=== PATIENT | female | born 1990 | race Asian ===

== ENCOUNTER 2017-12-23 14:54 | Outpatient (RCR) | payer OTHER ==
[~2017-12-23 14:54] MED LIST: FOLI-68 PO
--- NOTE | 2018-01-11 10:31 | RADIOLOGY IMAGING REPORT ---
FACILITY: [facility] PATIENT NAME: Austin Bui : 1990 MR: [id number] V: [id number] EXAM DATE: ORDERING PHYSICIAN: TWAN PIMENTEL TECHNOLOGIST: Location: [facility] - [place] Patient: Austin Bui : 1990 Visit/Account:[id number] Date of Sevice: 01/11/2018 Exam type: BIOPHYSICAL W/O NST, umbilical artery Dopplers History: 27-year-old female, 34 weeks 2 days by LMP with IUGR Comparison: 01/04/2018. Findings: There is a single live intrauterine gestation currently in vertex presentation. Normal heart rate of 134 bpm was documented. ERENDIRA is 11.8 cm with the largest amniotic fluid pocket measuring 3.9 cm. Biophysical profile score is 8 out of a possible 8 points. 2 points was ordered for breathing movement, 2 points for gross body movement, 2 points for tone and 2 points for qualitative amni otic fluid volume. Umbilical artery Doppler measurements were performed. Resistive index range from 0.52-0.65 which is normal. Systolic to diastolic ratios range from 2.1-2.9 also normal. IMPRESSION: 1. Single live intrauterine gestation currently in vertex presentation. 2. ERENDIRA is 11.8 cm with the largest amniotic fluid pocket measuring 3.9 cm. 3. Biophysical post pial score is 8/8. 4. Umbilical artery Doppler measurements are within normal range. Report Dictated By: Beni Cordero MD at 01/11/2018 10:10 AM Report E-Signed By: Beni Cordero MD at 01/11/2018 10:27 AM WSN:[email or web address]
--- NOTE | 2018-01-12 10:05 | RADIOLOGY IMAGING REPORT ---
FACILITY: [facility] - [place] PATIENT NAME: Austin Bui : 1990 MR: [id number] V: [id number] EXAM DATE: ORDERING PHYSICIAN: TWAN PIMENTEL TECHNOLOGIST: Location: [facility] - [place] Patient: Austin Bui : 1990 Visit/Account:[id number] Date of Sevice: 01/04/2018 Exam type: BIOPHYSICAL W/O NST History: Asymmetric IUGR Comparison: December 28, 2017. Findings: Biophysical profile score is eight out of eight. ERENDIRA measured 11.56 cm Gestational age by last menstrual period 33 weeks and two days IMPRESSION: 1. Biophysical profile score is eight out of eight Report Dictated By: Jess Morataya MD at 01/04/2018 2:59 PM Report E-Signed By: Jess Morataya MD at 01/04/2018 3:04 PM WSN:MAU
--- NOTE | 2018-01-12 10:09 | RADIOLOGY IMAGING REPORT ---
FACILITY: [facility] PATIENT NAME: Austin Bui : 1990 MR: [id number] V: [id number] EXAM DATE: ORDERING PHYSICIAN: TWAN PIMENTEL TECHNOLOGIST: Location: [facility] - [place] Patient: Austin Bui : 1990 Visit/Account:[id number] Date of Sevice: 12/28/2017 Exam type: BIOPHYSICAL W/O NST History: Asymmetric IUGR Comparison: None. Findings: There is a single fetus demonstrated in vertex presentation. The placenta is anterior. heart rate 139 bpm ERENDIRA measured 10.5 cm Biophysical profile score was eight out of eight The umbilical cord S/D ratio at the insertion was 2.6, at the placental insertion 3.1 and measu rements taken in the mid cord ranged from 2.8-3.5 IMPRESSION: 1. Biophysical profile score was eight out of eight The umbilical cord SD ratio at the insertion was 2.6, at the placental insertion 3.1 and severa l measurements taken in the mid cord ranged from 2.8-3.5 Report Dictated By: Jess Morataya MD at 12/28/2017 10:39 AM Report E-Signed By: Jess Morataya MD at 12/28/2017 10:46 AM WSN:MAU
--- NOTE | 2018-01-18 10:16 | RADIOLOGY IMAGING REPORT ---
FACILITY: [facility] - [place] PATIENT NAME: Austin Bui : 1990 MR: [id number] V: [id number] EXAM DATE: ORDERING PHYSICIAN: WILLY FERNÁNDEZ TECHNOLOGIST: Location: [facility] [place] Patient: Austin Bui : 1990 Visit/Account:[id number] Date of Sevice: 01/18/2018 Examination: Surgical sonogram for biophysical profile. Comparisons: Previous exam dated January 11, 2018 HISTORY: Follow-up IUGR. FINDINGS: There is a living single intrauterine in vertex presentation. heart rate is 121 bpm. Amniotic fluid index is 9.4 cm. Largest visible fluid pocket is 3.8 cm. Biophysical profile is as follows: breathing movement 2 out of 2 Gross body movement: 2 out of 2 tone: 2 out of 2 Amniotic fluid volume: 2 out of 2 IMPRESSION: 1. Living single intrauterine with a heart rate of 121 bpm. 2. Biophysical profile remains 8 out of 8. Report Dictated By: Wilfrido Avelar MD at 01/18/2018 10:09 AM Report E-Signed By: Wilfrido Avelar MD at 01/18/2018 10:12 AM WSN:[email or web address]
== END 2018-01-20 10:52 | disposition home or self-care (01) ==
LOC: SPU 14:54
PROVIDERS: ATTEND Obstetrics & Gynecology
DX: O26.893 Other specified pregnancy related conditions, third trimester (principal); Z3A.31 31 weeks gestation of pregnancy
CPT/HCPCS: 76819

== ENCOUNTER → 2017-12-31 | Outpatient (CLI) | payer OTHER ==
--- NOTE | 2017-12-28 10:50 | RADIOLOGY IMAGING REPORT ---
FACILITY: [facility] PATIENT NAME: Austin Bui : 1990 MR: [id number] V: [id number] EXAM DATE: ORDERING PHYSICIAN: TWAN PIMENTEL TECHNOLOGIST: Location: [facility] - [place] Patient: Austin Bui : 1990 Visit/Account:[id number] Date of Sevice: 12/28/2017 Exam type: BIOPHYSICAL W/O NST History: Asymmetric IUGR Comparison: None. Findings: There is a single fetus demonstrated in vertex presentation. The placenta is anterior. heart rate 139 bpm ERENDIRA measured 10.5 cm Biophysical profile score was eight out of eight The umbilical cord S/D ratio at the insertion was 2.6, at the placental insertion 3.1 and measu rements taken in the mid cord ranged from 2.8-3.5 IMPRESSION: 1. Biophysical profile score was eight out of eight The umbilical cord SD ratio at the insertion was 2.6, at the placental insertion 3.1 and severa l measurements taken in the mid cord ranged from 2.8-3.5 Report Dictated By: Jess Morataya MD at 12/28/2017 10:39 AM Report E-Signed By: Jess Morataya MD at 12/28/2017 10:46 AM WSN:[email or web address]
--- NOTE | 2018-01-01 10:15 | RADIOLOGY IMAGING REPORT ---
FACILITY: [facility] PATIENT NAME: DUNCAN PAREDES : [id number] MR: [id number] V: [id number] EXAM DATE: ORDERING PHYSICIAN: TWAN PIMENTEL TECHNOLOGIST: Shawn Shirley EXAMINATION:TWO-DIMENSIONAL ECHOCARDIOGRAPH REASON:FAMILY HISTORY OF PULMONARY HYPERTENSION. PATIENT IS IN THIRD TRIMESTER OF . 2D Measurements (normal values in centimeters) LV endLV endRV endVent.LV PostAorticLeftPercent DiastolicSystolicDiastolicSeptumWallRootAtriumShortening (3.5-5.7)(0.9-2.6)(0.6-1.1)(0.6-1.1)(2.0-3.7)(1.9-4.0)(25-35%) [id number]% STROKE VOLUME: 39 mL ESTIMATED EJECTION FRACTION:69% PARASTERNAL LONG AXIS: Overall left ventricular systolic function appears to be normal and chamber sizes also appear to be normal. Mild prolapse of the posterior leaflet of the mitral valve is noted. Color examination reveals a trace of mitral insufficiency. Color examination of the aortic valve revealed a trace of aortic insufficiency. PARASTERNAL SHORT AXIS: Overall left ventricular function again appears to be normal. No wall motion abnormalities are noted. The aortic valve is trileaflet in configuration and appears to open normally. Color examination of the pulmonic valve revealed a trace of pulmonic insufficiency. Color examination of the tricuspid valve revealed a trace to borderline mild amount of tricuspid insufficiency present. Color examination of the aortic valve revealed a trace of aortic insufficiency present. APICAL FOUR AND TWO CHAMBER: Normal left ventricular ejection fraction. The right ventricle also appears to contract normally. Left atrial and right atrial volumes were measured within normal range at 24 and 14 mL/m2. Aortic valve area and mitral valve area both measure within normal range at 2.2 and 2.3 cm2 respectively. SUBCOSTAL VIEW: Not able to be obtained reliably but no pericardial effusion was noted. Doppler examination of the mitral valve in diastole does reveal a normal pattern. OVERALL IMPRESSION: 1. Normal left ventricular ejection fraction of 69% with normal diastolic function. 2. Normal chamber sizes. 3. A trace of mitral, tricuspid aortic and pulmonic insufficiency with normal right ventricular systolic pressures of 30 mmHg which does include an estimated right atrial pressure of 3 mmHg. 4. Mild prolapse of the posterior leaflet of the mitral valve with a trace of mitral insufficiency. 5. In comparison to the examination done on 07/27/17, no appreciable change is noted. Dictated by: Meme Vasquez M.D. on 12/31/2017 at 17:51 Transcribed by: OMI on 12/31/2017 at 20:44 Approved by: Meme Vasquez M.D. on 01/01/2018 at 10:14 [facility]
--- NOTE | 2018-01-04 15:09 | RADIOLOGY IMAGING REPORT ---
FACILITY: [facility] PATIENT NAME: Austin Bui : 1990 MR: [id number] V: [id number] EXAM DATE: ORDERING PHYSICIAN: TWAN PIMENTEL TECHNOLOGIST: Location: [facility] - [place] Patient: Austin Bui : 1990 Visit/Account:[id number] Date of Sevice: 01/04/2018 Exam type: BIOPHYSICAL W/O NST History: Asymmetric IUGR Comparison: December 28, 2017. Findings: Biophysical profile score is eight out of eight. ERENDIRA measured 11.56 cm Gestational age by last menstrual period 33 weeks and two days IMPRESSION: 1. Biophysical profile score is eight out of eight Report Dictated By: Jess Morataya MD at 01/04/2018 2:59 PM Report E-Signed By: Jess Morataya MD at 01/04/2018 3:04 PM WSN:MAU
== END ==
LOC: US 12-28 02:27
PROVIDERS: ATTEND Obstetrics & Gynecology
DX: I34.0 Nonrheumatic mitral (valve) insufficiency (principal); I07.1 Rheumatic tricuspid insufficiency; I37.1 Nonrheumatic pulmonary valve insufficiency; I34.1 Nonrheumatic mitral (valve) prolapse
CPT/HCPCS: 76819; 93306

== ENCOUNTER 2018-01-25 09:00 | Outpatient (RCR) | payer OTHER ==
--- NOTE | 2018-01-25 10:01 | RADIOLOGY IMAGING REPORT ---
FACILITY: [facility] - [place] PATIENT NAME: Austin Bui : 1990 MR: [id number] V: [id number] EXAM DATE: ORDERING PHYSICIAN: WILLY FERNÁNDEZ TECHNOLOGIST: Location: [facility] Patient: Austin Bui : 1990 Visit/Account:[id number] Date of Sevice: 01/25/2018 BIOPHYSICAL W/O NST HISTORY: Asymmetric IUGR COMPARISON: Biophysical profile 01/18/2018 FINDINGS: age is: 36 weeks 2 days position: Cephalic heart rate: 134 bpm breathing motion = 2 Gross body movement = 2 tone = 2 ERENDIRA (13.5 cm) = 2 Total = / Other findings: None significant IMPRESSION: 1. Biophysical profile 07/07 Report Dictated By: Brando Monaco MD at 01/25/2018 9:55 AM Report E-Signed By: Brando Monaco MD at 01/25/2018 9:56 AM WSN:[email or web address]
--- NOTE | 2018-02-01 11:47 | RADIOLOGY IMAGING REPORT ---
FACILITY: [facility] PATIENT NAME: Austin Bui : 1990 MR: [id number] V: [id number] EXAM DATE: ORDERING PHYSICIAN: WILLY FERNÁNDEZ TECHNOLOGIST: Location: [facility] [place] Patient: Austin Bui : 1990 Visit/Account:[id number] Date of Sevice: 02/01/2018 Exam type: BIOPHYSICAL W/O NST History: SGA Comparison: January 25, 2018. Findings: The age is 37 weeks and two days position is cephalic heart rate was 153 bpm The biophysical profile score was eight out of eight The umbilical cord S/D ratio at the cord insertion was 2.2, in the midsection was 1.8-1.9, and at the placental insertion was 1.7 IMPRESSION: 1. Biophysical profile score 8 out of eight The umbilical cord S/D ratio was 2.2 at the cord insertion, 1.8, 1.9 and the midsection and 1.7 at th e placental insertion Report Dictated By: Jess Morataya MD at 02/01/2018 11:37 AM Report E-Signed By: Jess Morataya MD at 02/01/2018 11:42 AM WSN:MAU
--- NOTE | 2018-02-08 10:17 | RADIOLOGY IMAGING REPORT ---
FACILITY: [facility] - [place] PATIENT NAME: Austin Bui : 1990 MR: [id number] V: [id number] EXAM DATE: ORDERING PHYSICIAN: WILLY FERNÁNDEZ TECHNOLOGIST: Location: [facility] - [place] Patient: Austin Bui : 1990 Visit/Account:[id number] Date of Sevice: 02/08/2018 Exam type: BIOPHYSICAL W/O NST History: IUGR Comparison: February 01, 2018. Findings: The age by last menstrual period is 38 weeks and two days There is a single fetus in cephalic presentation. heart rate 132 bpm The biophysical profile score was eight out of eight The ERENDIRA measured 10.5 cm with the MVP 4.6 x 4.2 cm The umbilical cord SD ratio was measured at 2.1, 2.0, 1.9 IMPRESSION: 1. Biophysical profile score is eight out of eight Report Dictated By: Jess Morataya MD at 02/08/2018 9:56 AM Report E-Signed By: Jess Morataya MD at 02/08/2018 10:13 AM WSN:[email or web address]
--- NOTE | 2018-02-15 10:14 | RADIOLOGY IMAGING REPORT ---
FACILITY: [facility] PATIENT NAME: Austin Bui : 1990 MR: [id number] V: [id number] EXAM DATE: ORDERING PHYSICIAN: WILLY FERNÁNDEZ [place]CHNOLOGIST: [place] [facility] [place] Austin Bui : 1990 Visit/Account:[id number] Date of Sevice: 02/15/2018 Technique: BIOPHYSICAL W/O NST HISTORY: Asymmetric IUGR COMPARISON: Biophysical profile February 08, 2018 FINDINGS: age is: 39 weeks 2 days position: Cephalic heart rate: 135 bpm breathing motion = 2 Gross body movement = 2 tone = 2 ERENDIRA (12.2 cm) = 2 Total = 07/07 IMPRESSION: 1. Biophysical profile 07/07 Report Dictated By: Maurizio Snell DO at 02/15/2018 10:05 AM Report E-Signed By: Maurizio Snell DO at 02/15/2018 10:09 AM WSN:[email or web address]
[2018-02-18 20:30] VITALS: BMI 22.9
== END 2018-02-15 18:00 | disposition home or self-care (01) ==
LOC: SPU 09:00
PROVIDERS: ATTEND Obstetrics & Gynecology
DX: O26.893 Other specified pregnancy related conditions, third trimester (principal); Z3A.31 31 weeks gestation of pregnancy
CPT/HCPCS: 76819

== ENCOUNTER 2018-02-18 19:50 | Inpatient (IN) | payer OTHER ==
[~2018-02-18] VITALS: Ht 160 cm; Wt 58.5 kg
[2018-02-18] MEDS ORDERED: LR(*) 1000 ML BAG 1,000 ML ONE (20:21)
[2018-02-18] MEDS ORDERED: DINOPROSTONE 10 MG INSERT PV ONE (20:21)
[2018-02-18] MEDS ORDERED: ceFAZolin(*) 2GM/D5W 50ML 50 ML IVPB PRN (20:27)
[2018-02-18] MEDS ORDERED: OXYTOCIN 30 UNIT/D5LR 500 ML 500 ML IV PRN (20:27)
[2018-02-18] MEDS ORDERED: FAMOTIDINE(*) 20MG/50ML PREMIX 50 ML IVPB PRN (20:27)
[2018-02-18 20:30] VITALS: BP 103/77; Ht 160 cm; Wt 58.5 kg
[2018-02-18] MEDS ORDERED: LIDOCAINE 1% LOCAL 300 MG/30ML INJ PRN (20:30)
[2018-02-18] MEDS ORDERED: LIDOCAINE/SOD BICARB 8.4% SYR SC PRN (20:30)
[2018-02-18] MEDS ORDERED: cefOXitin/DEX(*) 2GM/50ML PREM 50 ML IVPB PRN (20:30)
[2018-02-18] MEDS: LR(*) 1000 ML BAG 1,000 ML IV SCH (20:38)
[2018-02-18] MEDS ORDERED: ONDANSETRON 4 MG/2 ML VIAL IVP PRN (21:55)
[2018-02-18] MEDS ORDERED: ZOLPIDEM TARTRATE 5 MG TAB PO PRN (21:55)
[2018-02-18] MEDS ORDERED: fentaNYL CITR 100 MCG/2 ML AMP IVP PRN (21:55)
[2018-02-18] MEDS ORDERED: ACETAMINOPHEN 500 MG TAB PO PRN (21:55)
[2018-02-19] MEDS ORDERED: CARBOPROST TROMETHAM 250MCG/ML IM ONLY ONE (05:17)
[2018-02-19] MEDS ORDERED: MISOPROSTOL 200 MCG TAB PO ONE (05:17)
[2018-02-19] MEDS: LR(*) 1000 ML BAG 1,000 ML IV SCH ×3 (06:27→20:00)
[2018-02-19] MEDS ORDERED: OXYTOCIN 30 UNIT/D5LR 500 ML 500 ML IV PRN (08:56)
--- NOTE | 2018-02-19 09:12 | Labor Progress Note ---
Labor Subjective Progress Notes Subjective Patient reports overall feels well. Has had some contractions overnight, not painful. Good movement. No LOF or PVB. Feeling Movement?: Yes Vaginal Discharge/Fluid: Bloody Show Labor Pain: Mild Neurological: No Headache, No Other Eyes: No Visual Disturbances Labor Objective Vital Signs Vital Signs Date Time Temp Pulse Resp B/P (MAP) Pulse Ox O2 Delivery O2 Flow Rate FiO2 02/18/18 20:30 98.6 78 16 103/77 (86) 94 Room Air Vaginal Discharge/Fluid?: Bloody Show Cervical Dialation: 3 Cervical Effacement (%): 50 Cervical Consistency: Moderate Cervical Position: Mid Station: -3 Presentation: Vertex Uterine Contractions(Q min): 3 Uterine Contraction Strength: Moderate UC Resting Tone: Soft Fetus Estimated Weight(grams): 2800 Heart Tones: 130 Heart Tone Variabilty: Moderate FHT Accelerations: 15X15 FHT Decelerations: None FHT Category: I General Exam General Appearance: Alert/Awake/No Acute Distress Cardiovascular: Regular Rate and Rhythm Respiratory: Clear to Auscultation Abdomen: Gravid - Non-Tender Extremities: No Cyanosis,Clubbing or Edema Integumentary: Skin Intact without Lesions or Rash Psychological: Alert & Oriented X3, Appropriate Mood & Affect Assessment and Plan Problems: (1) Intrauterine growth restriction affecting antepartum care of mother in third trimester Status: Acute Assessment & Plan: 28yo at 39.6/7 weeks undergoing IOL for asymmetric IUGR , 4%ile AC. Has been followed by M for this issue. No clear etiology for IUGR, of note, mother and father are of [place] descent. Maternal tricuspid regurgitation, most recent echo from third trimester shows EF 69%ile. testing reassuring. GBS negative. S/p cervidil ripening of cervix. -start pitocin -cefm/toco -epidural if needed -anticipate Problem Qualifiers (1) Intrauterine growth restriction affecting antepartum care of mother in third trimester: Fetus number: single or unspecified fetus Qualified Codes: O36.5930 - Maternal care for other known or suspected poor growth, third trimester, not applicable or unspecified LESLY PETE MD Feb 19, 2018 09:12
--- NOTE | 2018-02-19 09:19 | History & Physical ---
History of Present Illness Age of Patient: 28 : 1 Para or TPAL: 0 EDC per LMP: Feb 20, 2018 EDC per U/S: Feb 20, 2018 Estimated Gestational Age: 39.6 Chief Complaint scheduled induction of labor for IUGR History of Present Illness 28yo at 39.6, well-dated by 7 week ultrasound, presented to labor and delivery for planned induction of labor due to asymmetrical growth restriction, AC 4%ile. Has been followed by MFM for this issue, of note, family is of [place] descent. No clear etiology for growth restriction. Patient reports feels well, no MANJARREZ, N/V, RUQ pain or scotomata. She reports good movement, denies LOF or PVB. APC: 1. asymmetric IUGR as above 2. maternal tricuspid regurgitation, followed by echo x 2, most recent EF 69% ile 3rd trimester 3. GBS negative History Patient's Blood Type: O Positive Rubella Status: Immune Group B Strep Screen: Negative Miscellaneous Screens/Cultures: RPR NR, Hep B SAg neg Obstetrical History: primigravida Past Medical History: 1. tricuspid regurgitation, echo 12/31/17 EF 69%, stable from prior study 2. ankylosing spondylitis Allergies: Coded Allergies: No Known Drug Allergies (Unverified , 06/13/17) Social History: student success coach, originally from [place]. No T/E/D. Med Rec Home Meds Reported Medications Folic Acid (FOLIC ACID) 1 Mg Tablet, 1 MG PO QDAY, TAB 06/13/17 Review of Systems Constitutional: No Fever, No Weight Loss, No Weight Gain, No Chills, No Night Sweats, No Other Neurological: No Syncope, No Confusion, No Weakness, No Dizziness, No Slurred Speech, No Other Eyes: No Vision Change, No Loss of Vision, No Photophobia, No Other ENT: No Hearing Loss, No Sinus Congestion, No Sore Throat, No Ear Ache, No Tinnitus, No Other Cardiovascular: No Chest Pain, No Palpitations, No Orthostatic Hypotension, No Other Respiratory: No Shortness of Breath, No Cough, No Wheezing, No Other Gastrointestinal: No Nausea, No Vomiting, No Diarrhea, No Dysphagia, No Constipation, No Early Satiety, No Hematemesis, No Hematochezia, No Melena, No Abdominal Pain, No Other Genitourinary: No Dysuria, No Hematuria, No Urinary Incontinence, No Other Musculoskeletal: No Pain, No Sprain, No Strain, No Impaired Mobility, No Other Psychiatric: No Depression, No Anxiety, No Other Exam General Exam Vital Signs Vital Signs Date Time Temp Pulse Resp B/P (MAP) Pulse Ox O2 Delivery O2 Flow Rate FiO2 02/18/18 20:30 98.6 78 16 103/77 (86) 94 Room Air General Apperance: Alert/Awake/No Acute Distress Neuro: No Gross deficits Eyes: Normal Extraocular Movement & Vison Cardiovascular: Regular Rate and Rhythm Respiratory: Clear to Auscultation Abdomen: Gravid - Non-Tender Extremities: No Cyanosis,Clubbing or Edema Integumentary: Skin Intact without Lesions or Rash Psychological: Alert & Oriented X3, Appropriate Mood & Affect Vaginal Discharge/Fluid?: Bloody Show Cervical Dialation: 3 Cervical Effacement (%): 50 Cervical Consistency: Moderate Cervical Position: Mid Station: -3 Presentation: Vertex Uterine Contractions(Q min): 3 Uterine Contraction Strength: Moderate UC Resting Tone: Soft Fetus Feeling Movement?: Yes Estimated Weight(grams): 2800 Heart Tones: 130 Heart Tone Variabilty: Moderate FHT Accelerations: 15X15 FHT Decelerations: None FHT Category: I Medical Decision Making Pre-Admit Course Medical Record Review: Yes VTE Prophylasis: Adult Deep Vein Thrombosis/Pulmonary: No Pharmacological Contraindicati: Surgical Contraindication Mechanical Contraindications: Pt at Low Risk for VTE Assessment and Plan Problems: (1) Intrauterine growth restriction affecting antepartum care of mother in third trimester Status: Acute Assessment & Plan: 28yo at 39.6/7 weeks undergoing IOL for asymmetric IUGR , 4%ile AC. Has been followed by M for this issue. No clear etiology for IUGR, of note, mother and father are of [place] descent. Maternal tricuspid regurgitation, most recent echo from third trimester shows EF 69%ile. testing reassuring. GBS negative. S/p cervidil ripening of cervix. -start pitocin -cefm/toco -epidural if needed -anticipate Problem Qualifiers (1) Intrauterine growth restriction affecting antepartum care of mother in third trimester: Fetus number: single or unspecified fetus Qualified Codes: O36.5930 - Maternal care for other known or suspected poor growth, third trimester, not applicable or unspecified LESLY PETE MD Feb 19, 2018 09:19
[2018-02-19] MEDS: DLR(*) 1000 ML BAG 1,000 ML IV PRN ×2 (10:16→19:03)
--- NOTE | 2018-02-19 12:49 | Labor Progress Note ---
Labor Subjective Progress Notes Subjective Patient reports contractions are getting stronger. No LOF, no PVB, good movement. No other complaints. Vaginal Discharge/Fluid: Clear Fluid (AROM's now) Labor Pain: Moderate Neurological: No Headache, No Other Eyes: No Visual Disturbances Labor Objective Vital Signs Vital Signs Date Time Temp Pulse Resp B/P (MAP) Pulse Ox O2 Delivery O2 Flow Rate FiO2 02/18/18 20:30 98.6 78 16 103/77 (86) 94 Room Air Vaginal Discharge/Fluid?: Clear Fluid (AROM) Cervical Dialation: 4 Cervical Effacement (%): 70 Cervical Consistency: Soft Cervical Position: Mid Station: -2 Presentation: Vertex Uterine Contractions(Q min): 2 Fetus Estimated Weight(grams): 2800 Heart Tones: 140 Heart Tone Variabilty: Moderate FHT Accelerations: 15X15 FHT Decelerations: None FHT Category: I General Exam General Appearance: Alert/Awake/No Acute Distress Abdomen: Gravid - Non-Tender Integumentary: Skin Intact without Lesions or Rash Psychological: Alert & Oriented X3, Appropriate Mood & Affect Assessment and Plan Problems: (1) Intrauterine growth restriction affecting antepartum care of mother in third trimester Status: Acute Assessment & Plan: 28yo at 39.6/7 weeks undergoing IOL for asymmetric IUGR , 4%ile AC. Has been followed by M for this issue. No clear etiology for IUGR, of note, mother and father are of [place] descent. Maternal tricuspid regurgitation, most recent echo from third trimester shows EF 69%ile. testing reassuring. GBS negative. Doing well on pitocin. AROM'd this exam. -continue pitocin as tolerated -cefm/toco -epidural if needed -anticipate Problem Qualifiers (1) Intrauterine growth restriction affecting antepartum care of mother in third trimester: Fetus number: single or unspecified fetus Qualified Codes: O36.5930 - Maternal care for other known or suspected poor growth, third trimester, not applicable or unspecified LESLY PETE MD Feb 19, 2018 12:49
[2018-02-19] MEDS ORDERED: LIDOCAINE/PF 2% 200MG/10ML AMP 200 MG/10 ML AMPUL EPI PRN (13:10)
[2018-02-19] MEDS ORDERED: ePHEDrine 25 MG/5 ML DISP.SYR IVP PRN (13:10)
[2018-02-19] MEDS ORDERED: BUPIVACAINE 0.25% MPF INJ EPI PRN (13:10)
[2018-02-19] MEDS ORDERED: fentaNYL CITR 100 MCG/2 ML AMP IT PRN (13:10)
[2018-02-19] MEDS ORDERED: BUPIVACAINE 0.5% INJ 30ML VIAL EPI PRN (13:10)
[2018-02-19] MEDS ORDERED: LIDO/EPI 2% MPF 1:200,000 20ML EPI PRN (13:10)
[2018-02-19] MEDS ORDERED: ONDANSETRON 4 MG/2 ML VIAL IVP PRN (13:10)
[2018-02-19] MEDS ORDERED: EPIDURAL KEYS XX PRN (13:10)
[2018-02-19] MEDS ORDERED: FENTANYL/ROPIVACAINE 100 ML BAG EPI PRN (13:10)
--- NOTE | 2018-02-19 18:11 | Labor Progress Note ---
Labor Subjective Progress Notes Subjective Patient is comfortable with epidural. Feels contractions, not painful. No other complaints. Feeling Movement?: Yes Vaginal Discharge/Fluid: Clear Fluid Labor Pain: Comfortable Neurological: No Headache, No Other Eyes: No Visual Disturbances Labor Objective Vital Signs Vital Signs Date Time Temp Pulse Resp B/P (MAP) Pulse Ox O2 Delivery O2 Flow Rate FiO2 02/18/18 20:30 98.6 78 16 103/77 (86) 94 Room Air Vaginal Discharge/Fluid?: Clear Fluid Cervical Dialation: 7 Cervical Effacement (%): 90 Cervical Consistency: Soft Cervical Position: Anterior Station: +1 Presentation: Vertex Uterine Contractions(Q min): 5 Uterine Contraction Strength: Mild UC Resting Tone: Soft Fetus Estimated Weight(grams): 2800 Heart Tones: 130 Heart Tone Variabilty: Moderate FHT Accelerations: 15X15 FHT Decelerations: None General Exam General Appearance: Alert/Awake/No Acute Distress Abdomen: Gravid - Tender Integumentary: Skin Intact without Lesions or Rash Psychological: Alert & Oriented X3, Appropriate Mood & Affect Assessment and Plan Problems: (1) Intrauterine growth restriction affecting antepartum care of mother in third trimester Status: Acute Assessment & Plan: 28yo at 39 6/7 weeks undergoing IOL for asymmetric IUGR , 4%ile AC. Has been followed by MFM for this issue. No clear etiology for IUGR, of note, mother and father are of [place] descent. Maternal tricuspid regurgitation, most recent echo from third trimester shows EF 69%ile. testing reassuring. GBS negative. Doing well on pitocin. AROM'd. -continue pitocin as tolerated -cefm/toco -epidural -anticipate Problem Qualifiers (1) Intrauterine growth restriction affecting antepartum care of mother in third trimester: Fetus number: single or unspecified fetus Qualified Codes: O36.5930 - Maternal care for other known or suspected poor growth, third trimester, not applicable or unspecified LESLY PETE MD Feb 19, 2018 18:11
[2018-02-19] MEDS ORDERED: ROPIVACAINE 0.2% 20 ML VIAL ONE (22:25)
--- NOTE | 2018-02-19 23:20 | Anesthesia OB Pre-Anes Eval ---
History of Present Illness Anesthesia Start Date: Feb 19, 2018 Anesthesia Start Time: 13:40 OB Anesthesia Diagnosis: induction - medical Current Complication: other (IUGR) EDC: Feb 20, 2018 : 1 Para: 0 Pain Ratin Height (Inches): 63.00 Weight (Pounds): 129 BMI Calculated: 22.85 Past Medical History Medical History: other (tricuspid regurgitation) Surgical History: no surgical history Attended Childbirth Classes?: Yes, Attended RESEARCH PHYSIOLOGIST Lecture Hx Anesthesia Reactions: No Hx Family Anesthesia Reaction: No Home Meds Reported Medications Folic Acid (FOLIC ACID) 1 Mg Tablet, 1 MG PO QDAY, TAB 06/13/17 Allergies: Coded Allergies: No Known Drug Allergies (Unverified , 06/13/17) Anesthesia OB ROS Airway Class: l GI ROS: clear liquids, ice chips Last Solids Date: Feb 18, 2018 Last Solids Time: 18:00 Musculoskeletal ROS: other (ankylosing spondylitis, hip joints only) ASA Classification: 2 Assessment and Plan Anesthesia Plan: CSE Anesthesia Stop Day: Feb 19, 2018 Anesthesia Stop Time: 23:15 Epidural Catheter Removal: Removed by: (Epidural catheter will be removed by staff software engineer at a later, more convenient time.) JAREN EDWARD CRNA Feb 19, 2018 14:40
--- NOTE | 2018-02-19 23:25 | Procedure Note ---
Anesthetic Placement Note Anesthesia Plan: CSE Permit for Anesthesia Signed: Yes Anesthesia Technique: Lateral Anesthesia Prep: Betadine Interspace: L 3-4 Local Anesthetic: 1% Lidocaine, 25 Gauge Needle Amount Local - cc's: 5 Anesthesia Needle: 17g Touhy/Schliff Anesthesia Attempts: 1 Loss of Resistance: Normal Saline Depth of RENETTA (cm): 5.5 Intrathecal Needle: 27 Gauge Pencan Cerebral Spinal Fluid: Yes, Clear Catheter Insertion (cm): 5.5 Catheter Type: Shabazz - Spring Wound Epidural Dressing: Tegaderm, Tape, Adhesive [place] Anesthesia Tray: Lot Number [id number]), Expiration Date (2018-08-29), Reference Number ([id number]) Comment: 2219 Infusion bag empty, epidural dosed with 10 ml 0.2% Naropin and 80 mcg of Fentanyl for complaint of uterine contraction pain. 2234 Pt reports adequate analgesia, minimal motor block, delivery anticipated soon. Anesthesia Medications: Intrathecal Dose: mcg Fentanyl (20), mg Marcaine MPF (2.5), Time (1357), Other (Transient paresthesia with spinal needle placement, no C/O pain during injection.) Epidural Test Dose: 1.5 Lido/Epi (1:200,000), Dose - mL (3), Time (1359), Negative Epidural Loading Dose: 0.2% Ropivicaine, With Fentanyl 2mcg/ml, Dose - ml (15) , Time (1407), Other (In 5 ml increments Q 5 min.) Epidural Infusion: 0.2% Ropivicaine, With Fentanyl 2mcg/ml, Start Time: (1415) Epidural Pump Setting: Bolus Dose - mL (4), Lockout - Minutes (15), Maintenance Rate - mL/hr (8), Maximum per Hour - mL (24) Complications: None JAREN EDWARD CRNA Feb 19, 2018 14:33
[2018-02-20] VITALS (9 sets, daily range): BP systolic 79–110; BP diastolic 5–71
[2018-02-20] MEDS ORDERED: ACETAMINOPHEN 325 MG TAB PO PRN (00:10)
[2018-02-20] MEDS ORDERED: LANOLIN OINT 7 GM TUBE TP PRN (00:10)
[2018-02-20] MEDS ORDERED: INFLUENZA VIRUS VAC 0.5 ML SYR IM ONLY ONE (00:10)
[2018-02-20] MEDS ORDERED: HYDROCORTISONE 2.5% CR 30GM TB PR PRN (00:10)
[2018-02-20] MEDS ORDERED: APAP/HYDROCODONE 325/5 TAB PO PRN (00:10)
[2018-02-20] MEDS ORDERED: MAGNESIUM HYDROXIDE* 30ML UDCP PO PRN (00:10)
[2018-02-20] MEDS ORDERED: GLYCERIN/WITCH HAZEL LEAF 1 PK TOP PRN (00:10)
[2018-02-20] MEDS ORDERED: MEASLES,MUMP,RUBELLA VAC 0.5ML SC ONE (00:10)
[2018-02-20] MEDS ORDERED: DIPHTH/TETANUS/ACEL. PERTUSSIS IM ONE (00:10)
[2018-02-20] MEDS ORDERED: BENZOCAINE 20% 60 ML BTL TP PRN (00:10)
--- NOTE | 2018-02-20 00:20 | OB Delivery Note ---
Delivery Note Vaginal Delivery Type: Spont. Vaginal Delivery Delivery Date: Feb 19, 2018 Delivery Time: 23:01 Estimated Gestational Age(wks): 39.6 Length of Labor Stage I (hrs): 10 Length of Labor Stage II (hrs): 30 Labor Stage III (minutes): 5 Delivery Anesthesia: Epidural Sex: Male Weight (gms): 2862 Apgars: 1 Minute (7), 5 Minute (8) Repair Needed: Laceration, 2nd Degree Estimated Blood Loss: 300 Delivery Complications: Nuchal Cord (reduced at perinuem) Notes: Ms. Bui was admitted on the evening of 02/18/18 for scheduled induction of labor for asymmetric IUGR. testing was reassuring. She received cervidil for cervical ripening overnight. She tolerated this well. She was noted to be 3cm dilated when cervidil was removed. She was started on pitocin for induction of labor. She progressed well to 4cm dilated and underwent AROM for clear fluid. She received an epidural for pain management. She continued to progress well with pitocin and testing remained reassuring. She progressed to fully dilated at 22:52, pushed for approximately 10 minutes, and delivered a vigorous male infant over an intact perineum. was in the MARBELLA position. A nuchal cord was noted and reduced at the perineum. The infant was handed to his mother. His mouth and nares were suctioned with the bulb syringe. After pulsations ceased, the umbilical cord was doubly clamped and cut and a portion of cord blood was obtained as per protocol. The placenta was delivered spontaneously and intact. Three vessel cord noted. The uterus contracted well with pitocin and massage. The vulva vagina and perineum were inspected and a 2nd degree laceration was noted. This was repaired in the usual fashion with 2-0 vicryl and 3-0 chromicl. Excellent hemostasis was noted. Apgars 7/8. Placenta was sent to pathology due to IUGR diagnosis. Seamless Tube Roller in Attendence: LESLY Villavicencio MD Feb 20, 2018 00:20
[2018-02-20] MEDS: IBUPROFEN 600 MG TAB PO PRN ×3 (02:00→20:36)
[2018-02-20] MEDS ORDERED: LR(*) 1000 ML BAG 1,000 ML IV ONE (04:05)
[2018-02-20] MEDS: DOCUSATE CALCIUM 240 MG CAP PO SCH ×2 (08:33→20:36)
--- NOTE | 2018-02-20 10:45 | OB/GYN Progress Note ---
OB Subjective Progress Notes Subjective Patient reports feeling much better this am. Earlier felt dizzy when attempting to walk and had difficulty voiding. Now able to ambulate without difficulty. GI: POS Flatus, NEG Nausea, NEG Vomiting, NEG Bowel Movement : Voiding Well, Vaginal Bleeding, Scant Pain: Mild, Tolerating PO Pain Meds Neurological: No Headache, No Other Eyes: No Visual Disturbances OB Objective Physical Exam Vital Signs Date Time Temp Pulse Resp B/P (MAP) Pulse Ox O2 Delivery O2 Flow Rate FiO2 02/20/18 04:55 98.8 69 16 90/54 (66) Room Air 02/20/18 03:15 92 General Appearance: Alert/Awake/No Acute Distress Neurological: No Gross deficits Eyes: Normal Extraocular Movement & Vison Cardiovascular: Regular Rate and Rhythm Respiratory: Clear to Auscultation Abdomen: Fundus Firm, Non-Tender Extremities: No Cyanosis,Clubbing or Edema Integumentary: Skin Intact without Lesions or Rash Psychological: Alert & Oriented X3, Appropriate Mood & Affect Assessment and Plan Problems: (1) Intrauterine growth restriction affecting antepartum care of mother in third trimester Status: Resolved (2) care following vaginal delivery Status: Acute Assessment & Plan: 28yo PPD 1 s/p , 2nd degree laceration. Overall doing well. Blood pressures are low range, but stable for her, and she is now ambulating without difficulty. well. Maternal history of tricuspid regurgitation -- asymptomatic. -routine pp care -anticipate d/c home tomorrow Problem Qualifiers (1) Intrauterine growth restriction affecting antepartum care of mother in third trimester: Fetus number: single or unspecified fetus Qualified Codes: O36.5930 - Maternal care for other known or suspected poor growth, third trimester, not applicable or unspecified LESLY PETE MD Feb 20, 2018 10:45
[2018-02-20] MEDS ORDERED: DOCU240C67 PO (10:47)
[2018-02-20] MEDS ORDERED: IBUP600T22 PO (10:47)
[2018-02-20] MEDS ORDERED: LOR5/325 PO (10:47)
--- NOTE | 2018-02-20 13:56 | Anesthesia Post Eval Note ---
Anesthesia Post Eval Note stable, afebrile Pt able to participate in Eval: Yes Cardiovascular Status: Satisfactory Respiratory Status: Satisfactory Pain Managment: Satisfactory PO Nausea/Vomiting: Satisfactory Temperature Management: Satisfactory Mental Status: Satisfactory, Alert, Oriented X3 Post-Op Hydration Status: Satisfactory, Tolerating PO Well, Voiding w/o Difficulty Anesthesia Type: CSE Anesthesia Tolerance: Tolerated well, had effective analgesia and able to push with contractions during delivery. Today she does report mild discomfort at epidural insertion site and had mild dizziness when she got out of bed earlier today. Dizziness has resolved. She does have a mild headache, but not indicative of PDPH. JAREN EDWARD ASSOCIATE PROFESSOR OF SURGERY Feb 20, 2018 13:56
[2018-02-21 00:10] VITALS: BP 104/68
[2018-02-21 03:15] VITALS: BP 104/68
[2018-02-21 07:41] VITALS: BP 97/59
[2018-02-21] MEDS: IBUPROFEN 600 MG TAB PO PRN (08:51)
[2018-02-21] MEDS: DOCUSATE CALCIUM 240 MG CAP PO SCH (08:51)
--- NOTE | 2018-02-21 09:20 | OB/GYN Progress Note ---
OB Subjective Progress Notes Subjective Patient reports she feels well. is going well. Vaginal bleeding minimal. Pain well controlled GI: POS Flatus, NEG Nausea, NEG Vomiting, NEG Bowel Movement : Voiding Well, Vaginal Bleeding, Scant Pain: Mild, Tolerating PO Pain Meds Neurological: No Headache, No Other Eyes: No Visual Disturbances OB Objective Physical Exam Vital Signs Date Time Temp Pulse Resp B/P (MAP) Pulse Ox O2 Delivery O2 Flow Rate FiO2 02/21/18 07:41 97.7 53 15 97/59 (72) 95 Room Air General Appearance: Alert/Awake/No Acute Distress Neurological: No Gross deficits Eyes: Normal Extraocular Movement & Vison Cardiovascular: Regular Rate and Rhythm Respiratory: Clear to Auscultation Abdomen: Fundus Firm, Non-Tender Extremities: No Cyanosis,Clubbing or Edema Integumentary: Skin Intact without Lesions or Rash Psychological: Alert & Oriented X3, Appropriate Mood & Affect Result Diagram: 02/21/18 0645 Assessment and Plan Problems: (1) Intrauterine growth restriction affecting antepartum care of mother in third trimester Status: Resolved (2) care following vaginal delivery Status: Acute Assessment & Plan: 28yo PPD 2 s/p , 2nd degree laceration. Overall doing well and meeting all discharge criteria. Maternal history of tricuspid regurgitation -- asymptomatic. -routine discharge education -discharge home today -f/u 6 weeks for pp check and family planning Problem Qualifiers (1) Intrauterine growth restriction affecting antepartum care of mother in third trimester: Fetus number: single or unspecified fetus Qualified Codes: O36.5930 - Maternal care for other known or suspected poor growth, third trimester, not applicable or unspecified LESLY PETE MD Feb 21, 2018 09:20
--- NOTE | 2018-02-21 09:20 | OB/GYN Discharge Summary ---
Discharge Summary Reason for Hosp/Final Diag: (1) Intrauterine growth restriction affecting antepartum care of mother in third trimester Status: Resolved (2) care following vaginal delivery Status: Acute Hospital Course & Plan: 28yo PPD 2 s/p , 2nd degree laceration. Overall doing well and meeting all discharge criteria. Maternal history of tricuspid regurgitation -- asymptomatic. -routine discharge education -discharge home today -f/u 6 weeks for pp check and family planning Lates Vital Signs Vital Signs Date Time Temp Pulse Resp B/P (MAP) Pulse Ox O2 Delivery O2 Flow Rate FiO2 02/21/18 07:41 97.7 53 15 97/59 (72) 95 Room Air Weight (Pounds): 129 Result Diagram: 02/21/18 0645 Condition: Improved Discharge: Home Home Meds Active Scripts Ibuprofen (IBUPROFEN) 600 Mg Tablet, 600 MG PO Q6H Y for PAIN for 14 Days, #60 TAB Prov:LESLY PETE MD 02/20/18 Hydrocodone Bit/Acetaminophen (HYDROCODON-ACETAMINOPHEN 5-325) 1 Each Tablet, 1- 2 EACH PO Q4H Y for PAIN for 14 Days, #30 TAB Prov:LESLY PETE MD 02/20/18 Docusate Calcium (DOCUSATE CALCIUM) 240 Mg Capsule, 240 MG PO BID for 60 Days, # 120 CAPSULE 1 Refill Prov:LESLY PETE MD 02/20/18 Reported Medications Folic Acid (FOLIC ACID) 1 Mg Tablet, 1 MG PO QDAY, TAB 06/13/17 [facility] [phone] Follow up in: 6 wks PP or PO Discharge Diet: As Tolerates Discharge Activity: As Tolerates, Pelvic Rest Problem Qualifiers (1) Intrauterine growth restriction affecting antepartum care of mother in third trimester: Fetus number: single or unspecified fetus Qualified Codes: O36.5930 - Maternal care for other known or suspected poor growth, third trimester, not applicable or unspecified LESLY PETE MD Feb 21, 2018 09:20
== END 2018-02-21 11:30 | disposition home or self-care (01) | DRG 774 ==
LOC: OB 19:50
PROVIDERS: ADMIT Student in an Organized Health Care Education/Training Program; ATTEND Student in an Organized Health Care Education/Training Program
PROC: 3E0P7VZ Introduction of Hormone into Female Reproductive, Via Natural or Artificial Opening (ICD-10-PCS; 2018-02-18)
PROC: 3E033VJ Introduction of Other Hormone into Peripheral Vein, Percutaneous Approach (ICD-10-PCS; 2018-02-18)
PROC: 10E0XZZ Delivery of Products of Conception, External Approach (ICD-10-PCS; principal; 2018-02-19)
PROC: 0KQM0ZZ Repair Perineum Muscle, Open Approach (ICD-10-PCS; 2018-02-19)
PROC: 10907ZC Drainage of Amniotic Fluid, Therapeutic from Products of Conception, Via Natural or Artificial Opening (ICD-10-PCS; 2018-02-19)
DX: O69.81X0 Labor and delivery complicated by cord around neck, without compression, not applicable or unspecified (principal); O99.42 Diseases of the circulatory system complicating childbirth; O36.5930 Maternal care for other known or suspected poor fetal growth, third trimester, not applicable or unspecified; I07.1 Rheumatic tricuspid insufficiency; O70.1 Second degree perineal laceration during delivery; Z3A.39 39 weeks gestation of pregnancy; Z37.0 Single live birth
CPT/HCPCS: 36415; 85027; 88307; J2405; J2590; J2795; J3010; J7120; S0020